=== PATIENT | female | born 1985 | race Caucasian/White ===

== ENCOUNTER 2016-10-07 23:46 | Emergency (ER) | payer OTHER ==
[~2016-10-07] VITALS: Ht 160 cm; Wt 70.4 kg
[~2016-10-07 23:46] MED LIST: AZITHROMYCIN250 MG PO; PRENATAL TABLE1 EAC3 PO; VITAMIN D2000 UNIT PO
[2016-10-08] MEDS ORDERED: FLEXERIL10 MG PO (02:14)
[2016-10-08] MEDS ORDERED: MEDROL DOSEPAK4 MG PO (02:14)
[2016-10-08 02:41] VITALS: BP 129/75
== END 2016-10-08 02:41 | disposition home or self-care (01) ==
LOC: EME 23:46
DX: S33.5XXA Sprain of ligaments of lumbar spine, initial encounter (principal); X50.0XXA Overexertion from strenuous movement or load, initial encounter; Y92.009 Unspecified place in unspecified non-institutional (private) residence as the place of occurrence of the external cause; Y93.E6 Activity, residential relocation; F17.200 Nicotine dependence, unspecified, uncomplicated
CPT/HCPCS: 99281; 99284; J7512

== ENCOUNTER 2017-07-16 22:37 | Emergency (ER) | payer OTHER ==
[~2017-07-16] VITALS: Ht 160 cm; Wt 73.6 kg
[~2017-07-16 22:37] MED LIST changes: +FLEXERIL10 MG PO; +MEDROL DOSEPAK4 MG PO
[2017-07-17 00:03] LABS: INFLUENZA A VIRAL ANTIGEN NEGATIVE; INFLUENZA B VIRAL ANTIGEN NEGATIVE
[2017-07-17 00:48] LABS: ADD MIUA? NO; BILIRUBIN NEGATIVE; BLOOD NEGATIVE; COLOR YELLOW ((YELLOW)); GLUCOSE (STRIP) NEGATIVE; KETONES NEGATIVE; LEUKOCYTES NEGATIVE; NITRITE NEGATIVE; PROTEIN (STRIP) NEGATIVE; SPECIFIC GRAVITY 1.012 (1.000-1.030); UCUL ADDED? NO; UROBILINOGEN 0.2 MG/DL (0.2-1.0)
[2017-07-17 01:07] LABS: HEMATOCRIT 34.1 % (36.0-46.0); MCH 30.5 PG (29.0-34.0); MCHC 33.1 G/DL (30.0-36.0); MCV 92.2 FL (83-99); MEAN PLAT.VOLUME 8.5 uM^3 (9.5-12.4); PLATELET COUNT 540 K/uL (156-360); RBC DIS.WIDTH-CV 15.2 % (11.8-14.6); WHITE BLOOD COUNT 22.8 K/uL (4.1-10.2)
[2017-07-17 01:16] LABS: CHLORIDE 104 mEq/L (99-109); POTASSIUM 3.7 mEq/L (3.7-5.4); SODIUM 138 mEq/L (136-147)
[2017-07-17 01:18] LABS: GLUCOSE 81 mg/dL (70-99)
[2017-07-17 01:19] LABS: ANION GAP 11 MEQ/L (2-14)
[2017-07-17 01:20] LABS: TOTAL BILIRUBIN 0.2 mg/dL (0.0-1.0)
[2017-07-17 01:22] LABS: ALKALINE PHOSPHATASE 81 IU/L (3-129); GFR ESTIMATE (CALCULATED) > 59 mL/min/
[2017-07-17 01:23] LABS: UREA NITROGEN (BUN) 12 mg/dL (9-23)
[2017-07-17 01:31] LABS: QUANTITATIVE HCG < 4.0 MIU/ML
[2017-07-17 02:51] VITALS: BP 127/66
== END 2017-07-17 02:52 | disposition home or self-care (01) ==
LOC: EME 22:37 → EXP 22:37
PROVIDERS: Physician Assistant
DX: J40 Bronchitis, not specified as acute or chronic (principal); F17.200 Nicotine dependence, unspecified, uncomplicated; G89.29 Other chronic pain
CPT/HCPCS: 71250; 80053; 81003; 84702; 85027; 87502; 99281; 99285; J0696

== ENCOUNTER 2017-08-05 22:15 | Emergency (ER) | payer OTHER ==
[~2017-08-05] VITALS: Ht 160 cm; Wt 78.6 kg
[2017-08-05 23:35] LABS: HEMATOCRIT 33.3 % (36.0-46.0); MCH 30.6 PG (29.0-34.0); MCV 92.5 FL (83-99); MEAN PLAT.VOLUME 8.5 uM^3 (9.5-12.4); PLATELET COUNT 569 K/uL (156-360); RBC DIS.WIDTH-CV 15.8 % (11.8-14.6); RBC DIS.WIDTH-SD 53.3 % (39-53); WHITE BLOOD COUNT 16.2 K/uL (4.1-10.2)
[2017-08-05] MEDS ORDERED: PERCOCET 5/31 TABLET PO (23:46)
[2017-08-05] MEDS ORDERED: FIORICET 50-301 EAC1 PO (23:46)
[2017-08-05 23:48] LABS: CHLORIDE 107 mEq/L (99-109); POTASSIUM 3.7 mEq/L (3.7-5.4); SODIUM 143 mEq/L (136-147)
[2017-08-05 23:50] LABS: GLUCOSE 107 mg/dL (70-99)
[2017-08-05 23:51] LABS: ANION GAP 12 MEQ/L (2-14)
[2017-08-05 23:54] LABS: GFR ESTIMATE (CALCULATED) > 59 mL/min/
[2017-08-05 23:55] LABS: UREA NITROGEN (BUN) 8 mg/dL (9-23)
[2017-08-06 00:04] LABS: ADD MIUA? NO; BILIRUBIN NEGATIVE; BLOOD NEGATIVE; COLOR YELLOW ((YELLOW)); GLUCOSE (STRIP) NEGATIVE; KETONES NEGATIVE; LEUKOCYTES NEGATIVE; NITRITE NEGATIVE; PROTEIN (STRIP) NEGATIVE; UCUL ADDED? NO; UROBILINOGEN 0.2 MG/DL (0.2-1.0)
[2017-08-06 00:07] LABS: QUANTITATIVE HCG < 4.0 MIU/ML
[2017-08-06 00:24] LABS: BASOPHIL COUNT 0.1 K/uL (0-0.1); EOSINOPHIL (%) 0.5 % (0-5); EOSINOPHIL COUNT 0.1 K/uL (0-0.3); IMMATURE GRANULOCYTE (%) 0.4 % (0.0-0.7); IMMATURE GRANULOCYTE COUNT 0.1 K/uL; INSTRUMENT ABS NEUTROPHIL CT 9.8 K/uL; MONOCYTE (%) 9.2 % (3-12); MONOCYTE COUNT 1.5 K/uL (0-0.8); NEUTROPHIL (%) 59.2 % (45-76); NEUTROPHIL COUNT 9.8 K/uL (1.8-6.4)
[2017-08-06 00:30] LABS: D-DIMER ELISA < 150.00 ng/mLDDU (<230)
[2017-08-06] MEDS ORDERED: VENTOLIN HFA18 GM IH (00:39)
[2017-08-06] MEDS ORDERED: INDOCIN50 MG PO (00:39)
[2017-08-06 01:10] LABS: ADD MEDTOX COMMENT Y; AMPHETAMINE NEGATIVE (500 ng/mL); BARBITURATES PRESUMPTIVE POSITIVE (200 ng/mL); BENZODIAZEPINES NEGATIVE (150 ng/mL); COCAINE NEGATIVE (150 ng/mL); INTERNAL CONTROLS VALID? YES; METHADONE NEGATIVE (200 ng/mL); METHAMPHETAMINE NEGATIVE (500 ng/mL); OPIATES (MORPHINE) NEGATIVE (100 ng/mL); OXYCODONE PRESUMPTIVE POSITIVE (100 ng/mL); PHENCYCLIDINE NEGATIVE (25 ng/mL); PROPOXYPHENE NEGATIVE (300 ng/mL); THC CANNABINOIDS NEGATIVE (50 ng/mL); TRICYCLIC ANTIDEPRESSANTS NEGATIVE (300 ng/mL)
[2017-08-06 01:17] VITALS: BP 122/73
== END 2017-08-06 01:18 | disposition home or self-care (01) ==
LOC: EME 22:15 → RME 22:15
PROVIDERS: Physician Assistant
DX: R09.1 Pleurisy (principal); M25.511 Pain in right shoulder; G89.29 Other chronic pain; J42 Unspecified chronic bronchitis; F17.200 Nicotine dependence, unspecified, uncomplicated
CPT/HCPCS: 71020; 73030; 80048; 81003; 84702; 84999; 85025; 85027; 85379; 99281; 99284

== ENCOUNTER 2018-04-19 23:48 | Emergency (ER) | payer OTHER ==
[~2018-04-19] VITALS: Ht 160 cm; Wt 77.7 kg
[~2018-04-19 23:48] MED LIST changes: +FIORICET 50-301 EAC1 PO; +INDOCIN50 MG PO; +PERCOCET 5/31 TABLET PO; +VENTOLIN HFA18 GM IH
[2018-04-20 00:57] LABS: HEMATOCRIT 33.6 % (36.0-46.0); HEMOGLOBIN 11.6 G/DL (11.9-15.5); MCH 31.6 PG (29.0-34.0); MCHC 34.5 G/DL (30.0-36.0); MCV 91.6 FL (83-99); PLATELET COUNT 479 K/uL (156-360); RBC DIS.WIDTH-CV 13.2 % (11.8-14.6); RBC DIS.WIDTH-SD 44.6 % (39-53); RED BLOOD COUNT 3.67 M/uL (3.80-5.20); WHITE BLOOD COUNT 11.3 K/uL (4.1-10.2)
[2018-04-20 01:05] LABS: CHLORIDE 104 mEq/L (99-109); POTASSIUM 3.5 mEq/L (3.7-5.4); SODIUM 137 mEq/L (136-147)
[2018-04-20 01:08] LABS: GLUCOSE 92 mg/dL (70-99)
[2018-04-20 01:10] LABS: TOTAL BILIRUBIN 0.3 mg/dL (0.0-1.0)
[2018-04-20 01:11] LABS: ALKALINE PHOSPHATASE 103 IU/L (3-129); CREATININE 0.7 mg/dL (0.6-1.3); GFR ESTIMATE (CALCULATED) > 59 mL/min/
[2018-04-20 01:12] LABS: UREA NITROGEN (BUN) 10 mg/dL (9-23)
[2018-04-20 01:13] LABS: AST (GOT) 19 IU/L (2-34)
[2018-04-20 01:14] LABS: ALT (GPT) 35 IU/L (3-49)
[2018-04-20 01:19] LABS: APPEARANCE CLOUDY ((CLEAR)); BILIRUBIN NEGATIVE; BLOOD NEGATIVE; COLOR YELLOW ((YELLOW)); GLUCOSE (STRIP) NEGATIVE; KETONES NEGATIVE; LEUKOCYTES LARGE; NITRITE POSITIVE; PROTEIN (STRIP) NEGATIVE; SPECIFIC GRAVITY 1.015 (1.000-1.030)
[2018-04-20 01:20] LABS: QUANTITATIVE HCG 3660.1 MIU/ML
[2018-04-20 01:28] LABS: BACTERIA 2+ /HPF; EPITHELIAL CELLS 1+ /HPF; HYALINE CASTS 0-5 /LPF; MUCUS 2+ /LPF; UCUL ADDED? YES; WHITE BLOOD CELLS TNTC /HPF (0-5)
[2018-04-20] MEDS ORDERED: MACROBID100 MG PO (01:44)
[2018-04-20 02:12] VITALS: BP 116/68
[2018-04-20 07:37] LABS: THYROTROPIN (TSH) 1.1 MIU/L (0.4-5.5)
== END 2018-04-20 02:13 | disposition home or self-care (01) ==
LOC: EME 23:48
PROVIDERS: Physician Assistant
DX: O23.40 Unspecified infection of urinary tract in pregnancy, unspecified trimester (principal); O26.819 Pregnancy related exhaustion and fatigue, unspecified trimester; B96.20 Unspecified Escherichia coli [E. coli] as the cause of diseases classified elsewhere; G89.29 Other chronic pain; M54.9 Dorsalgia, unspecified; F17.200 Nicotine dependence, unspecified, uncomplicated; Z3A.00 Weeks of gestation of pregnancy not specified; Z87.19 Personal history of other diseases of the digestive system; Z98.890 Other specified postprocedural states; Z90.49 Acquired absence of other specified parts of digestive tract
CPT/HCPCS: 80053; 81003; 82948; 84443; 84702; 85027; 87077; 87086; 87186; 99281; 99284

== ENCOUNTER 2018-04-25 19:59 | Emergency (ER) | payer OTHER ==
[~2018-04-25] VITALS: Ht 160 cm; Wt 81.9 kg
[~2018-04-25 19:59] MED LIST changes: +MACROBID100 MG PO
[2018-04-25 21:25] LABS: APPEARANCE CLEAR ((CLEAR)); BILIRUBIN NEGATIVE; BLOOD LARGE; COLOR YELLOW ((YELLOW)); GLUCOSE (STRIP) NEGATIVE; KETONES NEGATIVE; LEUKOCYTES NEGATIVE; NITRITE NEGATIVE; PROTEIN (STRIP) NEGATIVE; SPECIFIC GRAVITY 1.005 (1.000-1.030); UROBILINOGEN 0.2 MG/DL (0.2-1.0)
[2018-04-25 21:29] LABS: BASOPHIL (%) 0.7 % (0-1); BASOPHIL COUNT 0.1 K/uL (0-0.1); EOSINOPHIL (%) 2.9 % (0-5); EOSINOPHIL COUNT 0.4 K/uL (0-0.3); HEMATOCRIT 37.7 % (36.0-46.0); HEMOGLOBIN 12.5 G/DL (11.9-15.5); IMMATURE GRANULOCYTE (%) 0.2 % (0.0-0.7); LYMPHOCYTE (%) 35.4 % (15-42); LYMPHOCYTE COUNT 4.3 K/uL (1.0-2.8); MCH 31.1 PG (29.0-34.0); MCHC 33.2 G/DL (30.0-36.0); MCV 93.8 FL (83-99); MONOCYTE (%) 7.8 % (3-12); MONOCYTE COUNT 0.9 K/uL (0-0.8); NEUTROPHIL COUNT 6.4 K/uL (1.8-6.4); RBC DIS.WIDTH-CV 13.2 % (11.8-14.6); RBC DIS.WIDTH-SD 45.9 % (39-53); RED BLOOD COUNT 4.02 M/uL (3.80-5.20)
[2018-04-25 21:33] LABS: PLATELET COUNT 499 K/uL (156-360)
[2018-04-25 21:34] LABS: INTER. NORMALIZED RATIO 0.8
[2018-04-25 21:35] LABS: BACTERIA RARE /HPF; EPITHELIAL CELLS 1+ /HPF; MUCUS NONE SEEN /LPF; RED BLOOD CELLS 0-5 /HPF (0-5); UCUL ADDED? NO; WHITE BLOOD CELLS 0-5 /HPF (0-5)
[2018-04-25 21:37] LABS: PTT 27.2 SEC (25-37)
[2018-04-25 21:38] LABS: CHLORIDE 106 mEq/L (99-109); SODIUM 140 mEq/L (136-147)
[2018-04-25 21:39] LABS: GLUCOSE 74 mg/dL (70-99)
[2018-04-25 21:41] LABS: POTASSIUM 4.3 mEq/L (3.7-5.4)
[2018-04-25 21:43] LABS: CREATININE 0.8 mg/dL (0.6-1.3); GFR ESTIMATE (CALCULATED) > 59 mL/min/
[2018-04-25 21:44] LABS: UREA NITROGEN (BUN) 6 mg/dL (9-23)
[2018-04-25 21:53] LABS: QUANTITATIVE HCG 294.1 MIU/ML
[2018-04-25 23:27] LABS: SOURCE SWAB
[2018-04-25 23:51] VITALS: BP 91/57
== END 2018-04-25 23:53 | disposition home or self-care (01) ==
LOC: EME 19:59
PROVIDERS: Emergency Medicine
DX: O04.89 (Induced) termination of pregnancy with other complications (principal); R53.83 Other fatigue; Z87.440 Personal history of urinary (tract) infections; F17.200 Nicotine dependence, unspecified, uncomplicated
CPT/HCPCS: 76801; 80048; 81003; 84702; 85025; 85610; 85730; 86900; 86901; 87210; 87491; 87591; 99281; 99285; J7030